=== PATIENT | female | born 1995 | race Two or more races ===

== ENCOUNTER 2023-01-29 14:03 | Emergency (ER) | payer SELFPAY ==
[2023-01-29 17:04] LABS: CORONAVIRUS COVID-19 NAA NEGATIVE (NEGATIVE); INFLUENZA A NAA NEGATIVE (NEGATIVE); INFLUENZA B NAA NEGATIVE (NEGATIVE)
[2023-01-29 17:26] LABS: RESPIRATORY SYNCYTIAL VIR NAA POSITIVE (NEGATIVE)
== END 2023-01-29 17:45 | disposition home or self-care (01) ==
LOC: MW.ED 14:03
DX: R06.02 Shortness of breath (principal); R50.9 Fever, unspecified; B33.8 Other specified viral diseases; Z20.822 Contact with and (suspected) exposure to COVID-19
CPT/HCPCS: 0240U; 71045; 87634; 99283